=== PATIENT | female | born 1990 | race African-American/Black ===

== ENCOUNTER → 2018-10-05 | Outpatient (CLI) | payer OTHER | LOC: OD 16:49 | PROVIDERS: ATTEND Internal Medicine Nephrology | DX: Z94.0 Kidney transplant status (principal); Z79.899 Other long term (current) drug therapy | CPT/HCPCS: 36415; 80197 ==

== ENCOUNTER → 2018-10-12 | Outpatient (CLI) | payer OTHER | LOC: OD 07:40 | PROVIDERS: ATTEND Internal Medicine Nephrology | DX: Z94.0 Kidney transplant status (principal); Z79.899 Other long term (current) drug therapy | CPT/HCPCS: 36415; 80197 ==

== ENCOUNTER → 2019-09-13 | Outpatient (CLI) | payer OTHER ==
[2019-09-13 17:47] LABS: ANION GAP 15 (5-19); BLOOD UREA NITROGEN 18 mg/dL (7-20); CALCIUM 10.6 mg/dL (8.4-10.2); CARBON DIOXIDE 22 mmol/L (22-30); CHLORIDE 104 mmol/L (98-107); GLUCOSE 122 mg/dL (75-110); POTASSIUM 4.7 mmol/L (3.6-5.0)
== END ==
LOC: OD 16:13
PROVIDERS: ATTEND Internal Medicine Nephrology
DX: N18.2 Chronic kidney disease, stage 2 (mild) (principal); N25.81 Secondary hyperparathyroidism of renal origin
CPT/HCPCS: 36415; 80048; 80197; 82306

== ENCOUNTER → 2019-09-21 | Outpatient (CLI) | payer OTHER | LOC: OD 12:56 | PROVIDERS: ATTEND Internal Medicine Nephrology | DX: N18.2 Chronic kidney disease, stage 2 (mild) (principal); I12.9 Hypertensive chronic kidney disease with stage 1 through stage 4 chronic kidney disease, or unspecified chronic kidney disease; N25.81 Secondary hyperparathyroidism of renal origin; E83.52 Hypercalcemia; Z94.0 Kidney transplant status | CPT/HCPCS: 36415; 82310; 83970; 87086 ==

== ENCOUNTER → 2019-12-09 | Outpatient (CLI) | payer OTHER ==
[2019-12-09 10:39] LABS: ABSOLUTE EOSINOPHILS # (AUTO) 0.1 10^3/uL (0.0-0.6); ABSOLUTE LYMPHOCYTES (AUTO) 1.8 10^3/uL (0.5-4.7); ABSOLUTE MONOCYTES (AUTO) 0.7 10^3/uL (0.1-1.4); ABSOLUTE NEUT (AUTO) 9.2 10^3/uL (1.7-8.2); BASOPHILS % (AUTO) 0.3 % (0-2); EOSINOPHILS % (AUTO) 0.5 % (0-6); HEMATOCRIT 42.6 % (36.0-47.0); HEMOGLOBIN 14.2 g/dL (12.0-15.5); LYMPHOCYTES % (AUTO) 15.5 % (13-45); MEAN CORPUSCULAR HEMOGLOBIN 29.7 pg (27.0-33.4); MEAN CORPUSCULAR HGB CONC 33.3 g/dL (32.0-36.0); MEAN CORPUSCULAR VOLUME 89 fl (80-97); MONOCYTES % (AUTO) 5.9 % (3-13); PLATELET COUNT 266 10^3/uL (150-450); RED BLOOD COUNT 4.78 10^6/uL (3.72-5.28); RED CELL DISTRIBUTION WIDTH 14.7 % (11.5-14.0); SEGMENTED NEUTROPHILS % (AUTO) 77.8 % (42-78); TOTAL CELLS COUNTED % (AUTO) 100 %; WHITE BLOOD COUNT 11.8 10^3/uL (4.0-10.5)
[2019-12-09 11:02] LABS: ANION GAP 13 (5-19); BLOOD UREA NITROGEN 15 mg/dL (7-20); CALCIUM 10.3 mg/dL (8.4-10.2); CARBON DIOXIDE 19 mmol/L (22-30); CHLORIDE 107 mmol/L (98-107); GLUCOSE 116 mg/dL (75-110); POTASSIUM 3.8 mmol/L (3.6-5.0)
[2019-12-09 11:51] LABS: APPEARANCE,URINE SLIGHTLY-CLOUDY; BILIRUBIN,URINE NEGATIVE (NEGATIVE); COLOR,URINE YELLOW; GLUCOSE, URINE NEGATIVE (NEGATIVE); KETONES,URINE NEGATIVE (NEGATIVE); PROTEIN,URINE NEGATIVE (NEGATIVE); URINE SPECIFIC GRAVITY 1.015; UROBILINOGEN,URINE NEGATIVE mg/dL (<2.0)
[2019-12-10 14:36] LABS: CREATININE URINE 96.1 mg/dL (Not Estab.)
[2019-12-12 09:23] LABS: MICROALBUMIN URINE <3.0 ug/mL (Not Estab.)
== END ==
LOC: OD 10:15
PROVIDERS: ATTEND Internal Medicine Nephrology
DX: I12.9 Hypertensive chronic kidney disease with stage 1 through stage 4 chronic kidney disease, or unspecified chronic kidney disease (principal); N18.2 Chronic kidney disease, stage 2 (mild); N25.81 Secondary hyperparathyroidism of renal origin; E83.52 Hypercalcemia; Z94.0 Kidney transplant status
CPT/HCPCS: 36415; 80048; 81001; 82043; 82306; 82570; 83970; 85025

== ENCOUNTER → 2020-05-11 | Outpatient (CLI) | payer OTHER ==
[2020-05-11 10:58] LABS: APPEARANCE,URINE CLEAR; BILIRUBIN,URINE NEGATIVE (NEGATIVE); COLOR,URINE YELLOW; GLUCOSE, URINE NEGATIVE (NEGATIVE); KETONES,URINE NEGATIVE (NEGATIVE); LEUKOCYTE ESTERASE,URINE NEGATIVE (NEGATIVE); NITRITE,URINE NEGATIVE (NEGATIVE); PROTEIN,URINE NEGATIVE (NEGATIVE); URINE SPECIFIC GRAVITY 1.015; UROBILINOGEN,URINE NEGATIVE mg/dL (<2.0)
[2020-05-11 11:04] LABS: ANION GAP 8 (5-19); BLOOD UREA NITROGEN 20 mg/dL (7-20); CALCIUM 9.9 mg/dL (8.4-10.2); CARBON DIOXIDE 22 mmol/L (22-30); CHLORIDE 106 mmol/L (98-107); GLUCOSE 102 mg/dL (75-110)
== END ==
LOC: OD 10:05
PROVIDERS: ATTEND Internal Medicine Nephrology
DX: I12.9 Hypertensive chronic kidney disease with stage 1 through stage 4 chronic kidney disease, or unspecified chronic kidney disease (principal); N18.2 Chronic kidney disease, stage 2 (mild); E21.1 Secondary hyperparathyroidism, not elsewhere classified; N39.0 Urinary tract infection, site not specified; Z94.0 Kidney transplant status
CPT/HCPCS: 36415; 80048; 80197; 81001; 83970

== ENCOUNTER → 2020-05-15 | Outpatient (CLI) | payer OTHER | LOC: OD 07:21 | PROVIDERS: ATTEND Internal Medicine Nephrology | DX: Z51.81 Encounter for therapeutic drug level monitoring (principal); Z94.0 Kidney transplant status; Z79.899 Other long term (current) drug therapy | CPT/HCPCS: 36415; 80197 ==

== ENCOUNTER 2020-11-02 06:08 | Emergency (ER) | payer OTHER ==
--- NOTE | 2020-11-02 07:28 | ER Document Report ---
ED Medical Screen (RME) - General Chief Complaint: Altered Mental Status Stated Complaint: ALTERED MENTAL STATUS Time Seen by Provider: 11/02/20 07:16 Notes: 30-year-old female presented to ED for complaint of short-term memory loss. She states that she has a hard time remembering things that happened recently. 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 Patient is alert oriented respirations regular nonlabored speaking in full sentences. She does states she cannot remember to agree is clear but respirations are regular and unlabored with O2 sat of 100%. The nurse reported that the patient called them three times and they brought her in on the third time. She states stated that she called the first time because her eyes were twitching the second times because her eyes were twitching and the third time because she was having a hard time with her short-term memory. She then asked me was her medicine to help with her short-term memory. This is a 30-year-old female. I have greeted and performed a rapid initial assessment of this patient. A comprehensive ED assessment and evaluation of the patient, analysis of test results and completion of medical decision making process will be conducted by an additional ED providers. TRAVEL OUTSIDE OF THE [place] IN LAST 30 DAYS: No - Related Data Allergies/Adverse Reactions: fish derived Allergy (Verified 10/25/20 18:42) peanut Allergy (Verified 10/25/20 18:42) Penicillins Allergy (Verified 10/25/20 18:42) Past Medical History Endocrine Medical History: Reports: Hx Diabetes Mellitus Type 1, Hx Diabetes Mellitus Type 2 Psychiatric Medical History: Denies: Hx Depression Past Surgical History: Reports: Hx Kidney (Renal Surgery) Physical Exam - Vital signs Vitals: Temp Resp BP Pulse Ox 98.4 F 25 H 127/83 H 95 11/02/20 06:13 11/02/20 06:13 11/02/20 06:13 11/02/20 06:13 Course - Vital Signs Vital signs: Temp Pulse Resp BP Pulse Ox 98.4 F 25 H 127/83 H 95 11/02/20 06:13 11/02/20 06:13 11/02/20 06:13 11/02/20 06:13
[2020-11-02] MEDS ORDERED: METOPROLOL SUCCINATE 25 MG TAB.SR.24H PO ONE (10:51)
[2020-11-02] MEDS ORDERED: CLONIDINE HCL 0.2 MG TABLET PO ONE ×2 (13:35→14:22)
--- NOTE | 2020-11-02 15:30 | ER Document Report ---
Entered by CORAZON JOHNSON SCRIBE 11/02/20 0953 Acting as scribe for:WOOD HUNG MD ED General - General Chief Complaint: Memory Loss Stated Complaint: ALTERED MENTAL STATUS Time Seen by Provider: 11/02/20 07:16 Mode of Arrival: Medic Information source: Patient, [facility] Records Notes: This 30 year old female patient brought in by EMS presents to the ED today for evaluation. Per [facility] records, patient tested positive for COVID on 10/22/20 and was admitted here on 10/26 for COVID pneumonia and acute respiratory failure with hypoxia. She was just discharged yesterday with instructions to continue taking her home medications in addition to starting Buspar, prednisone taper, and vitamins. Patient states that she was unable to take any of her medications, including the new prescriptions because she "had to come right back to the hospital because of COVID." When asked for further clarification, she initially states "it's hard to breathe out of my eye." She then states that her chief complaint is short-term memory loss. Denies any other symptoms or complaints. TRAVEL OUTSIDE OF THE [place] IN LAST 30 DAYS: No - Related Data Allergies/Adverse Reactions: fish derived Allergy (Verified 10/25/20 18:42) peanut Allergy (Verified 10/25/20 18:42) Penicillins Allergy (Verified 10/25/20 18:42) Past Medical History - General Information source: [facility] Records - Social History Smoking Status: Unknown if Ever Smoked Smoking Education Provided: No Family History: Reviewed & Not Pertinent, Other - Kidney failure s/p transplant Endocrine Medical History: Reports: Hx Diabetes Mellitus Type 1, Hx Diabetes Mellitus Type 2 Past Surgical History: Reports: Hx Kidney (Renal Surgery) Review of Systems - Review of Systems Constitutional: See HPI, Recent illness EENT: No symptoms reported Cardiovascular: No symptoms reported Respiratory: No symptoms reported Gastrointestinal: No symptoms reported Genitourinary: No symptoms reported Female Genitourinary: No symptoms reported Musculoskeletal: No symptoms reported Skin: No symptoms reported Hematologic/Lymphatic: No symptoms reported Neurological/Psychological: See HPI, Other - short-term memory loss -: Yes All other systems reviewed and negative Physical Exam - Vital signs Vitals: Temp Resp BP Pulse Ox 98.4 F 25 H 127/83 H 95 11/02/20 06:13 11/02/20 06:13 11/02/20 06:13 11/02/20 06:13 - General General appearance: Alert In distress: None - HEENT Head: Normocephalic, Atraumatic Eyes: Normal Extraocular movements intact: Yes Pupils: PERRL Neck: Normal, Supple - Respiratory Respiratory status: No respiratory distress Chest status: Nontender Breath sounds: Normal Chest palpation: Normal - Cardiovascular Rhythm: Regular Heart sounds: Normal auscultation Murmur: No - Abdominal Inspection: Obese Distension: No distension Bowel sounds: Normal Tenderness: Nontender - Abdomen soft Organomegaly: No organomegaly - Back Back: Normal, Nontender - Extremities General upper extremity: Normal inspection General lower extremity: Normal inspection. No: Edema - Neurological Neuro grossly intact: Yes Orientation: AAOx4 Bubba Coma Scale Eye Opening: Spontaneous [place] Coma Scale Verbal: Oriented [place] Coma Scale Motor: Obeys Commands [place] Coma Scale Total: 15 - Psychological Associated symptoms: Normal affect, Normal mood - Skin Skin Temperature: Warm Skin Moisture: Dry Skin Color: Normal Course - Re-evaluation Re-evalutation: 11/02/20 15:26 Patient resting comfortably not showing signs of distress at this time. 11/02/20 15:27 Case management was consulted inasmuch as patient was just discharged from the hospital less than 24 hours ago and is back in the emergency room today having not taken the medication showing noncompliance. It was determined based on review of chart and notes from case management and discharge planning the patient is competent enough to go home and take her blood pressure medicines as well as her other meds. No labs or any studies were done today inasmuch as patient had just had recent labs when in the hospital.. - Vital Signs Vital signs: Temp Pulse Resp BP Pulse Ox 98.4 F 23 H 182/131 H 95 11/02/20 06:13 11/02/20 11:01 11/02/20 11:01 11/02/20 11:01 11/02/20 15:26 Elevated blood pressure. Patient has not had any of her a.m. medications today. Patient was just discharged from the hospital yesterday after a very multiple day stay in the hospital with COVID-19 positive. - Laboratory Results Critical Laboratory Results Reviewed: No Critical Results - Radiology Results Critical Radiology Results Reviewed: No Critical Results Discharge - Discharge Clinical Impression: Hypertension, COVID-19 Disposition: HOME, SELF-CARE Instructions: COVID-19 Guidance for Persons Under Investigation Additional Instructions: High Blood Pressure When your blood pressure was taken today it was elevated. Today's reading was . Pre-hypertension/Hypertension: The patient has been informed that they may have pre-hypertension or Hypertension based on a blood pressure reading in the emergency department. I recommend that the patient call the primary care provider listed on their discharge instructions or a physician of their choice this week to arrange follow up for further evaluation of possible pre- hypertension or Hypertension. Sometimes, stress or illness causes a temporary elevation of your blood pressure. We suggest that you get your blood pressure measured three more times during the next few days to see if this is more than a temporary abnormality. If your blood pressure is greater than 150/90 on each occasion, you must have treatment. Some simple things you can do to help are: If you have blood pressure medicine but aren't using it regularly, start taking it again. Get some aerobic exercise for at least 20 minutes on a daily basis. (See your doctor before beginning a new exercise program.) Eat a low-fat diet. Lose excess weight. Avoid salty foods and avoid adding salt to any of the foods you eat. Avoid diet pills, decongestants, "energizing" herbs, and other medicines that elevate blood pressure. If left untreated, hypertension greatly enhances your risk for developing heart disease and strokes. Please don't ignore this problem. I personally performed the services described in the documentation, reviewed and edited the documentation which was dictated to the scribe in my presence, and it accurately records my words and actions.
[2020-11-02 16:32] VITALS: BP 134/97
== END 2020-11-02 16:33 | disposition home or self-care (01) ==
LOC: ER 06:08
DX: U07.1 COVID-19 (principal); J12.82 Pneumonia due to coronavirus disease 2019; T38.0X6A Underdosing of glucocorticoids and synthetic analogues, initial encounter; T45.2X6A Underdosing of vitamins, initial encounter; Z91.128 Patient's intentional underdosing of medication regimen for other reason; Z91.14 Patient's other noncompliance with medication regimen; R41.3 Other amnesia; I10 Essential (primary) hypertension; E11.9 Type 2 diabetes mellitus without complications; Z91.013 Allergy to seafood; Z91.010 Allergy to peanuts; Z88.0 Allergy status to penicillin
CPT/HCPCS: 99283

== ENCOUNTER 2020-11-23 18:14 | Emergency (ER) | payer OTHER ==
[2020-11-23 18:28] VITALS: BP 133/84
--- NOTE | 2020-11-23 18:53 | ER Document Report ---
ED Medical Screen (RME) - General Chief Complaint: Depression Stated Complaint: DEPRESSION Time Seen by Provider: 11/23/20 18:51 Notes: Patient presents complaining of depression and crying all the time. Patient denies any SI or HI. Patient states she has been having the symptoms for the past month. Patient has a history of devious kidney transplant and bowel surgery. I have greeted and performed a rapid initial assessment of this patient. A comprehensive ED assessment and evaluation of the patient, analysis of test results and completion of the medical decision making process will be conducted by additional ED providers. TRAVEL OUTSIDE OF THE [place] IN LAST 30 DAYS: No - Related Data Allergies/Adverse Reactions: fish derived Allergy (Verified 10/25/20 18:42) peanut Allergy (Verified 10/25/20 18:42) Penicillins Allergy (Verified 10/25/20 18:42) Past Medical History Endocrine Medical History: Reports: Hx Diabetes Mellitus Type 1, Hx Diabetes Mellitus Type 2 Psychiatric Medical History: Denies: Hx Depression Past Surgical History: Reports: Hx Kidney (Renal Surgery) Physical Exam - Vital signs Vitals: Temp Pulse Resp BP Pulse Ox 98.1 F 103 H 20 133/84 H 99 11/23/20 18:26 11/23/20 18:26 11/23/20 18:26 11/23/20 18:26 11/23/20 18:26 - Psychological Associated symptoms: Normal affect, Normal mood Course - Vital Signs Vital signs: Temp Pulse Resp BP Pulse Ox 98.1 F 103 H 20 133/84 H 99 11/23/20 18:26 11/23/20 18:26 11/23/20 18:26 11/23/20 18:26 11/23/20 18:26
--- NOTE | 2020-11-23 19:37 | ER Document Report ---
ED Psych Disorder / Suicide - General TRAVEL OUTSIDE OF THE [place] IN LAST 30 DAYS: No - General Chief Complaint: Depression Stated Complaint: DEPRESSION Time Seen by Provider: 11/23/20 18:51 Primary Care Provider: [facility] [Outside] - Follow up as needed [facility] [Outside] - Follow up as needed Notes: Patient is a 30-year-old female presents emergency department with a chief complaint of depression. She states that she was at home and was crying multiple times. She does not have any reason for crying, other than her is in [place] and she, "needed someone to talk to." Patient was talking on the phone during assessment. She was on the phone with her . She states that she felt better after speaking with Alyssa from mental health. She denies any suicidal or homicidal ideation. Denies any chest pain, abdominal pain, dysuria, or any other symptoms. (DORA WU) - Related Data Allergies/Adverse Reactions: fish derived Allergy (Verified 10/25/20 18:42) peanut Allergy (Verified 10/25/20 18:42) Penicillins Allergy (Verified 10/25/20 18:42) Past Medical History - Social History Smoking Status: Never Smoker Chew tobacco use (# tins/day): No Frequency of alcohol use: None Drug Abuse: None Family History: Reviewed & Not Pertinent, Other - Kidney failure s/p transplant Endocrine Medical History: Reports: Hx Diabetes Mellitus Type 1, Hx Diabetes Mellitus Type 2 Psychiatric Medical History: Denies: Hx Depression Past Surgical History: Reports: Hx Kidney (Renal Surgery) Review of Systems - Review of Systems Notes: REVIEW OF SYSTEMS: CONSTITUTIONAL : Denies recent illness. Denies recent unintentional weight loss. Denies fever, chills, or sweats. EENT: Denies eye, ear, throat, or mouth pain, discharge, or symptoms. Denies nasal or sinus congestion. CARDIOVASCULAR: Denies chest pain. RESPIRATORY: Denies shortness of breath, cough, congestion, difficulty breathing, or wheezing. GASTROINTESTINAL: Denies nausea, vomiting, and diarrhea. Denies abdominal pain. Denies constipation. GENITOURINARY: Denies difficulty urinating, burning, blood in urine, urgency or frequency. MUSCULOSKELETAL: Denies neck and back pain. Denies joint pain or swelling. SKIN: Denies rash, itchiness, or lesions HEMATOLOGIC : Denies easy bruising or bleeding. LYMPHATIC: Denies swollen, painful, enlarged glands. NEUROLOGICAL: Denies no numbness or tingling denies weakness. Denies headache. Denies altered mental status. Denies alteration in speech. PSYCHIATRIC: See HPI. All other systems reviewed and negative. (DORA WU) Physical Exam - Vital signs Vitals: Temp Pulse Resp BP Pulse Ox 98.1 F 103 H 20 133/84 H 99 11/23/20 18:26 11/23/20 18:26 11/23/20 18:26 11/23/20 18:26 11/23/20 18:26 - Notes Notes: PHYSICAL EXAMINATION: GENERAL: Appears well, healthy, well-nourished, no acute distress. HEAD: Normocephalic, atraumatic. EYES: PERRL, conjunctiva normal, all extraocular movements intact, sclera nonicteric ENT: Moist mucous membranes. NECK: Supple, no noticeable swelling, redness, rash. Normal range of motion. LUNGS: Equal breath sounds bilaterally and clear to auscultation. No wheezes rales or rhonchi. CARDIOVASCULAR: S1-S2, regular rate, regular rhythm. Radial pulses 2+, normal. ABDOMEN: Normoactive bowel sounds. Soft, nontender, no guarding, no rebound tenderness, and no masses palpated. EXTREMITIES: Normal strength and range of motion, no pitting or edema. No cyanosis. NEUROLOGICAL: Moves all extremities upon command. Strength 5/5 in all extremities. PSYCH: Normal mood, normal affect. SKIN: Warm, dry. No rash, lesions, ulcerations noted. Normal skin turgor. (DORA WU) Course - Laboratory Results Critical Laboratory Results Reviewed: No Critical Results - Radiology Results Critical Radiology Results Reviewed: No Critical Results - Re-evaluation Re-evalutation: 11/23/20 20:[address] Agarwal, my attending. At this time, since patient does not have any suicidal or homicidal ideation, we will continue follow-up on an outpatient basis. Mental health is in agreement with this plan. Patient was also in agreement with this plan. Follow-up precautions were given. Verbal discharge instructions were given to the patient. They verbalized understanding. They are stable for discharge. (DORA WU) - Vital Signs Vital signs: Temp Pulse Resp BP Pulse Ox 98.1 F 103 H 20 133/84 H 99 11/23/20 18:26 11/23/20 18:26 11/23/20 18:26 11/23/20 18:26 11/23/20 18:26 Discharge - Discharge Clinical Impression: Depression Qualifiers: Depression Type: other depression Qualified Code(s): F32.89 - Other specified depressive episodes Condition: Stable Disposition: HOME, SELF-CARE Additional Instructions: You have been evaluated by both medical and behavioral health teams for depression. You have been deemed appropriate for discharge. While in the emergency department you received the following services/or had access to: Medical screening and assessment, nursing services, dietary services, pharmacological services, one-on-one counseling and/or psychotherapy, environmental services, and continuous observation by a patient safety companela serra. You should continue your home medications as prescribed and follow up with your medication provider. Depression Your evaluation reveals that you have mental depression. While symptoms may be vague, they often include disturbance of sleep, fatigue, loss of appetite, and general loss of interest in life. While depression may be a side effect of drugs, or a reaction to a major change in your life, many cases have no known cause. If depression is acute, and related to a major loss in your life, you can expect it to clear completely with time. If you have been depressed a long t ct, are prone to repeated bouts of depression or low mood, or have been thinking of suicide, get help. Depression can be treated with anti-depressant medication and counselling. Long-term depression will often take a few weeks to clear, even with appropriate medication. Follow-up care is important. Contact your physician, the hospital emergency center, crisis line, or your counsellor if you are losing control or having self-destructive thoughts. Follow up care: You are currently involved in outpatient [place] [facility] [place] and are highly recommended to continue outpatient services. You will benefit from learning how to identify your triggers and learn more healthy coping skills. You are also recommended to request medication management with outpatient provider once you establish services. You are recommended, in the future, to take medications as prescribed and make changes after consulting your psychiatric medication provider. You have been given a community outpatient referral list to include phone numbers for [facility] and [facility] mobile crisis. If you experience worsening or a significant change in your symptoms, notify the physician immediately, utilize mobile crisis, or return to the Emergency Department at any time for re-evaluation. Dr. Lee was consulted to care management of this patient; attending physicians in agreement with recommendations and disposition. Referrals: [facility] [Outside] - Follow up as needed [facility] [Outside] - Follow up as needed
--- NOTE | 2020-11-23 19:50 | PSYCHOLOGICAL NOTE ---
Psych Note - Psych Note Date seen by psych provider: 11/23/20 Time seen by psych provider: 19:10 Psych Note: Reason for Consult: depression [id number] Consent Permissions: (he was on the phone during the assessment) Patient is a 30 year old female who presented to the [facility] ED today via POV. Patient denies suicidal ideation, plan, and intent. She states she is depressed and has been crying all day. Patient was on the phone with her during the evaluation. She reports her is away at [employer] [facility] in [place] and has been there since September. She reports he comes back to [place] on 12.20.2020. She denies this as a stressor, but states she wants to be with her . Patient denies history of suicide attempts, but reports history of cutting her thighs and arms. Noted no scars. Patient reports she stopped taking her Buspar prescribed by [facility] earlier in the month due to making her feel weird. She notes that it is the Buspar making her feel this way and states when she takes it she feels tired and groggy. Patient refilled Bupar 10mg 2 times a day on 11.01.2020 after being discharged from [facility] for medical issues and reports stopped taking it 3 days ago. She reports since she stopped taking it, I feel like myself again. When asked how she feels like herself when she reported feeling depressed, she stated she just started feeling depressed today and was crying all day. She denies any other stressors. [place] [facility], but does not have a medication management prescriber and did not follow up since discharging from [facility]. Patient reports muslim members in the area as support system. Patient was alert and oriented to self, person, place, time and situation. Mood was euphoric with congruent affect. She was on the phone with her during evaluation (he is in [facility] for training) She denies current suicidal and homicidal ideation, plan, and intent. Patient did not appear to be responding to internal stimuli as evidenced by fair eye contact and answering questions zak ropriately when addressed. Thought processes are linear and organized. Conversational speech was within normal limits for rate, tone and prosody. Intellectual abilities are estimated to be average. Insight, judgment, and impulse control were fair as evidenced by coming to the ED for depression. Patient engages appropriately. She demonstrates future forward goal oriented thinking as she talks about her coming home in the end of November from training. Clinical Presentation: depression IVC Criteria per [facility] GS 122C Dangerous to others Within the relevant past the individual No has inflicted or attempted to inflict or threatened to inflict serious bodily harm on another AND No that there is a reasonable probability that this conduct will be repeated. OR No has acted in such a way as to create a substantial risk of serious bodily harm to another AND No that there is a reasonable probability that this conduct will be repeated. OR No has engaged in extreme destruction of property AND NO that there is a reasonable probability that this conduct will be repeated. Previous episodes of dangerousness to others, when applicable, may be considered when determining reasonable probability of future dangerous conduct. Clear, cogent, and convincing evidence that an individual has committed a homicide in the relevant past is prima facie evidence of dangerousness to others. Dangerous to self Within the relevant past the individual has done any of the following: acted in such a way as to show ALL of the following: No The individual would be unable without care, supervision, and the continued assistance of others not otherwise available, to exercise self- control, judgment, and discretion in the conduct of the individual's daily responsibilities and social relations or to satisfy the individual's need for nourishment, personal or medical care, usp, or self-protection and safety. AND No There is a reasonable probability of the individual suffering serious physical debilitation within the near future unless adequate treatment is given. A showing of behavior that is grossly irrational, of actions that the individual is unable to control, of behavior that is grossly inappropriate to the situation, or of other evidence of severely impaired insight and judgment shall create a prima facie inference that the individual is unable to care for himself or herself. OR No has attempted suicide or threatened suicide AND No that there is a reasonable probability of suicide unless adequate treatment is given OR No has mutilated himself or herself or attempted to mutilate himself or herself AND No that there is a reasonable probability of serious self-mutilation unless adequate treatment is given. NOTE: Previous episodes of dangerousness to self, when applicable, may be considered when determining reasonable probability of physical debilitation, suicide, or self-mutilation. Impression\plan: Patient is cleared from psychiatric services. Patient came to the ED voluntarily for reported depression. She presented with euthymic mood and reported she was much better and was talking to her on the phone which makes her feel better as well. Patient does not meet criteria for IVC. She denies suicidal ideation, plan, and intent. She reports stopping taking her Buspar 10mg bid on her own as it made her feel tired and groggy. She reports since stopping Buspar, 3 days ago, she has felt like myself. Patient states she spent most of the day crying and came to the ED for her reported depression and wanting to start medication to help. She denies depression as on ongoing concern and denies medication compliance. [place] is following up with him on Thursday. She was given community resource sheet for medication management providers in the community and recommended to follow up there or talk to therapist, [facility] see if [place] psychiat[facility] can see her as a dependent. She was informed about mobile crisis as well. Patient was recommended to utilize mobile crisis or return to the ED if necessary. was on the phone the entire time during the assessment. T here are no safety concerns for patient at this time as she does not endorse any SI/HI and has no history of attempts/ hospitalizations. She has a strong support network to include she can talk to on the phone, muslim members, and [place] with [employer]. Dr. Lee was consulted to care management of this patient; attending physicians in agreement with recommendations and disposition.
== END 2020-11-23 20:31 | disposition home or self-care (01) ==
LOC: ER 18:14
DX: F32.89 Other specified depressive episodes (principal); E11.9 Type 2 diabetes mellitus without complications; Z88.0 Allergy status to penicillin; Z91.010 Allergy to peanuts
CPT/HCPCS: 99282